=== PATIENT | female | born 1980 | race African-American/Black ===

== ENCOUNTER → 2018-08-26 | Outpatient (CLI) | payer OTHER | LOC: ULTRA 08:52 | DX: E04.1 Nontoxic single thyroid nodule (principal); E07.9 Disorder of thyroid, unspecified; Z80.8 Family history of malignant neoplasm of other organs or systems ==

== ENCOUNTER → 2020-02-23 | Outpatient (CLI) | payer OTHER ==
--- NOTE | 2020-02-26 11:07 | PATH ---
[facility] [address] [place] [address] PATHOLOGY RPT PROCEDURE Name: JEFFREY FOREMAN Room #: REG JENNIFER Lopez.#: [id number] Admission: 02/23/20 Date of : 76 Discharge: Report #: [id number] Path Case #: [id number] [facility] Accession Number: [id number] . 01 Material submitted: . lymph node - LEFT AXILLARY NODE BIOPSY. Modifiers: left, axillary tail . 02 Diagnosis: Lymph node, left axillary tail lymph node, needle core biopsy: - Lymph node tissue adjacent to mature squamous epithelium as well as keratinous debris, see comment. - Negative for metastatic carcinoma within lymphoid tissue. (IUV:pit 02/24/2020) QTP 02/24/2020 1500 Local . 02 Comment: Examination shows lymphoid tissue immediately adjacent to mature squamous/keratinous epithelium as well as keratinous debris. This may represent a mature keratinous cyst in close association with the lymph node tissue sampled. Findings were correlated with Dr. Ambrose Guajardo in [facility] IR who confirms this lymph node appears cystic. A properly controlled AE1/AE3 immunohistochemical stain is performed on block A1 and it shows no evidence of metastatic carcinoma (epithelial membranous staining) within the lymphoid tissue examined. . A portio of this lymph node was sent to [facility] for flow cytometric analysis. An addendum will be issued subsequent to receiving the same. (IUV:pit 02/24/2020) . 02 Addendum: . Special studies report received from [facility], [address] [place] [address], [address], [place], [address], on case [id number], labeled with their number [id number], dated 02/25/2020. . Flow Cytometry: Hematologic Neoplasia Assessment . Clinical History Lymphadenopathy . Indication for Study Evaluation for hematolymphoid neoplasia . Specimen Lymph Node, Left [place] [address] PATHOLOGY RPT PROCEDURE Name: JEFFREY FOREMAN [id number]mission: 02/23/20 Date of : 76 Discharge: Report #: [id number] Path Case #: [id number] 72% (7AAD exclusion) . Interpretation Lymph Node, Left Axillary: No significant lymphoid immunophenotypic abnormalities detected . Comments No immunophenotypic evidence of non-Hodgkin lymphoma, blastic cells or plasmacytoma is detected in this analysis. . Some large cell lymphomas are prone to rapid degeneration which can render such lesions undetectable by flow cytometry. Also, Hodgkin lymphoma, some T cell lymphomas, and T-cell-rich B-cell lymphoma may not be detectable by flow cytometry. . A thorough clinical, histologic and immunohistochemical correlation is recommended for full exclusion of non-hematolymphoid cellular processes, atypical lymphoid reactions, granulomatous disease or Hodgkin lymphoma. . Populations Analyzed Lymphocytes: 62% B-cells: 34.1%, polytypic/polyclonal sIg light chain pattern (K/L= 1.6:1) T-cells: no significant abnormalities of the markers tested CD4:CD8: 3.2 NK cells: 1.5% Granulocytes: 2.7% Present and phenotypically unremarkable for the markers tested Monocytes/ 0.3% Present and phenotypically unremarkable for the Histiocytes: markers tested CD45 Negative 35% No significant reactivity with the markers tested Events/Debris: (may represent non-hematolymphoid cells, degenerated cells, debris, unlysed red blood cells, etc.) . Morphologic Evaluation A slide was reviewed for senior quality analyst purposes only. . Specimen Description Cell Yield: 0.24 x 10 and 6 Due to a low cellular yield, an average of 4000 events were acquired per tube. Flow cytometry data derived from an acquisition of less than 10,000 events needs to be interpreted within the context of all clinical, laboratory, and morphologic information. . Reagent(s) Used CD2, CD3, CD4, CD5, CD7, CD8, CD10, CD11b, CD19, CD20, CD23, CD30, CD38, CD43, CD45, CD56, CD57, FMC-7, HLA-DR, kappa, lambda, CytoKappa, [address] [address] PATHOLOGY RPT PROCEDURE Name: JEFFREY FOREMAN Room #: REG CL [facility].#: [id number] Admission: 02/23/20 Date of : 76 Discharge: Report #: [id number] Path Case #: [id number] [facility] . at [facility] [employer]. Larry Gamez MD Pathologist . Intended Use Flow cytometry is optimally used to immunophenotypically characterize abnormal populations when they are detected. Negative flow cytometry results do not exclude lymphoma or neoplasia. Possible false negative flow cytometry results may occur in, but are not limited to, the following: neoplastic cells in Hodgkin lymphoma are not typically adequately represented by routine clinical flow cytometry; neoplastic cells may be lost or inadequately represented due to degeneration, sample processing, sampling artifact, or patchy involvement; plasma cells are typically underrepresented by flow cytometry; immature cells/blasts may be underrepresented due to hemodilution; myeloproliferative disorders and low grade myelodysplasia may not have immunophenotypic abnormalities or increased blasts. Correlation with all available clinical, laboratory, and morphologic data is always necessary to assess for the possibility of false negative flow cytometry results and to establish a diagnosis. Each marker in this analysis was used to assess for potential antigenic abnormalities or to evaluate detected abnormalities. . Any image or images that accompany this report are pharmaceutical representative images only and should not be used to render a diagnosis. . Disclaimer(s) This test was developed and its performance characteristics determined by [facility] [employer]. It has not been cleared or approved by the Food and Drug Administration. . [facility] is a business unit of [employer] a wholly-owned subsidiary of [employer]. . This test was performed at [facility]. at [address], [address] - Pmo Manager: Antonio Rivera MD. . For inquiries, the physician may contact Lab: [phone] . A complete copy of the report is on file. . Professional services performed by [facility] at [address], [place] [address]. Technical services performed by [facility] [address] [place] [address] PATHOLOGY RPT PROCEDURE Name: JEFFREY FOREMAN Room #: REG [facility] M.R.#: [id number] Admission: 02/23/20 Date of : 76 Discharge: Report #: [id number] Path Case #: [id number] [facility] at [address], [place] [address]. . (IUV:amj 02/26/2020) . AZJ/02/26/2020 Addendum Electronically Signed by Nicol Zapien MD, Pathologist . 02 Electronically signed: . Nicol Zapien MD, Pathologist NPI- [id number] . 01 Gross description: . The specimen is received in formalin, labeled "Jeffrey Foreman, left axilla". Received is a needle core of pale hassan soft tissue measuring 0.8 cm in length by 0.1 cm in diameter. The specimen is submitted entirely in cassette A1. A portion of the specimen is received in RPMI solution and is forwarded on for flow cytometry studies. (CAA; 02/23/2020) QAC/QAC 02/23/2020 1731 Local . 02 Pathologist provided ICD-10: R59.1 . 02 CPT . 274663, [id number] Specimen Comment: A courtesy copy of this report has been sent to [phone] Specimen Comment: [phone], Specimen Comment: Report sent to ,DR PEREZ / DR LAGOS Performed at: [address], [place], [place] [id number] MD Inocente Lobo MD Phone: [phone] Performed at: [address] [id number] MD Nicol Zapien MD Phone: [phone]
== END | disposition home or self-care (01) ==
LOC: ULTRA 09:05
PROVIDERS: ATTEND Specialist
DX: R59.0 Localized enlarged lymph nodes (principal)